=== PATIENT | male | born 1950 | race Caucasian/White ===

== ENCOUNTER 2016-10-17 20:04 | Emergency (ER) | payer BC ==
[2016-10-17 20:22] VITALS: BP 126/60
[2016-10-17 20:41] LABS: Hematocrit 34 % (42-52); Hemoglobin 11.6 g/dl (14.0-18.0); Mean Corpuscular HGB Conc 34 g/dl (31-36); Mean Corpuscular Hemoglobin 34 pg (27-31); Mean Corpuscular Volume 99 fL (80-94); Mean Platelet Volume 8 um3 (7.4-10.4); Red Blood Count 3.43 10^6/ul (4.0-5.4); Red Cell Distribution Width 12 % (10.5-15); White Blood Count 5.6 10^3/ul (3.5-10.8)
--- NOTE | 2016-10-17 20:48 | RAD ---
INDICATION: Chest pain. COMPARISON: There are no prior studies available for comparison. TECHNIQUE: Dual-energy PA and lateral views of the chest were obtained. FINDINGS: The heart is within normal limits in size. Mediastinal and hilar contours appear within normal limits. The lungs are hyperinflated and clear there is mild bilateral apical pleural thickening. No pleural effusion or pneumothorax is seen. IMPRESSION: FINDINGS CONSISTENT WITH COPD, NO EVIDENCE FOR ACUTE FINDING.
[2016-10-17 20:54] LABS: Albumin 3.7 g/dL (3.2-5.2); BUN/Creatinine Ratio 15.1 (8-20); Calcium 8.5 mg/dL (8.6-10.3); EGFR African American 139.6 (>60); EGFR Non-African American 108.5 (>60); Globulin 1.9 g/dL (2-4); Magnesium 1.8 mg/dL (1.9-2.7); Potassium 3.4 mmol/L (3.5-5.0); Total Bilirubin 0.3 mg/dL (0.2-1.0); Total Protein 5.6 g/dL (6.4-8.9)
--- NOTE | 2016-10-17 21:07 | ED ---
Hadley Cisse Matthew, scribed for Leo Gregory MD on 10/17/16 at 2028 . Syncope/Near Syncope - HPI Summary HPI Summary: A 65 y/o male presents to the ED after having multiple episodes of syncope. Per the , the patient was doing the dishes when he syncopated. He synopsized 4 times in a row and each episode lasted for one minute. The patient states that he doesn't remember anything and he did not feel like he was going pass out. Currently, he feels better and denies SOB. This also happened two months ago and was hospitalized overnight for observation in [place]. He received a nuclear stress test at that time. He has CMT. - History Of Current Complaint Time Seen by Provider: 10/17/16 20:11 Hx Obtained From: Patient Onset/Duration: Sudden Onset, Lasting Minutes, Resolved Timing: Frequency Of Episodes - 4 for approximately 1 minute each Context: Witnessed, Loss Of Consciousness Activity At Onset: At Rest Associated Head Trauma: No Aggravating Factor(s): Nothing Alleviating Factor(s): Spontaneous Resolution Associated Signs And Symptoms: Negative - Allergies/Home Medications Allergies/Adverse Reactions: Allergies Allergy/AdvReac Type Severity Reaction Status Date / Time No Known Allergies Allergy Verified 05/24/12 13:19 PMH/Surg Hx/FS Hx/Imm Hx Cardiovascular History: Denies: Hx Pacemaker/ICD Sensory History: Reports: Hx Contacts or Glasses - GLASSES Denies: Hx Hearing Aid Opthamlomology History: Reports: Hx Contacts or Glasses - GLASSES Psychiatric History: Denies: Hx Panic Disorder - Surgical History Surgery Procedure, Year, and Place: 2011 VEIN STRIPPING AT [facility] [place] Hx Anesthesia Reactions: No Infectious Disease History: No Infectious Disease History: Denies: Traveled Outside the [place] in Last 30 Days - Family History Family History: FHx of CMT - Social History Lives: With Family Alcohol Use: None Hx Substance Use: No Substance Use Type: Reports: None Hx Tobacco Use: Yes Smoking Status (MU): Former Smoker Review of Systems Constitutional: Negative Eyes: Negative ENT: Negative Cardiovascular: Negative Respiratory: Negative Gastrointestinal: Negative Genitourinary: Negative Musculoskeletal: Negative Skin: Negative Positive: Syncope Psychological: Normal All Other Systems Reviewed And Are Negative: Yes Physical Exam Triage Information Reviewed: Yes Vital Signs On Initial Exam: Initial Vitals Temp Pulse Resp BP Pulse Ox 98.5 F 74 20 126/60 100 04/25/17 20:16 10/17/16 20:16 10/17/16 20:16 10/17/16 20:16 10/17/16 20:16 Vital Signs Reviewed: Yes Appearance: Positive: Well-Appearing, No Pain Distress Skin: Positive: Warm Head/Face: Positive: Normal Head/Face Inspection Eyes: Positive: EOMI, GENO ENT: Positive: Hearing grossly normal Neck: Positive: Supple Respiratory/Lung Sounds: Positive: Clear to Auscultation, Breath Sounds Present Cardiovascular: Positive: RRR Abdomen Description: Positive: Nontender, Soft Bowel Sounds: Positive: Present Musculoskeletal: Positive: Strength/ROM Intact Neurological: Positive: Sensory/Motor Intact, Alert, Oriented to Person Place, Time, CN Intact II-III Psychiatric: Positive: Affect/Mood Appropriate Diagnostics - Vital Signs Vital Signs Temp Pulse Resp BP Pulse Ox 10/17/16 20:16 98.5 F 74 20 126/60 100 - Laboratory Lab Results: Lab Results 10/17/16 10/17/16 10/17/16 Range/Units 20:25 20:25 20:25 WBC 5.6 (3.5-10.8) 10^3/ul RBC 3.43 L (4.0-5.4) 10^6/ul Hgb 11.6 L (14.0-18.0) g/dl Hct 34 L (42-52) % MCV 99 H (80-94) fL MCH 34 H (27-31) pg MCHC 34 (31-36) g/dl RDW 12 (10.5-15) % Plt Count 274 (150-450) 10^3/ul MPV 8 (7.4-10.4) um3 Neut % (Auto) 60.1 (38-83) % Lymph % (Auto) 26.6 (25-47) % Heard % (Auto) 8.3 (1-9) % Eos % (Auto) 3.7 (0-6) % Baso % (Auto) 1.3 (0-2) % Absolute Neuts (auto) 3.3 (1.5-7.7) 10^3/ul Absolute Lymphs (auto) 1.5 (1.0-4.8) 10^3/ul Absolute Monos (auto) 0.5 (0-0.8) 10^3/ul Absolute Eos (auto) 0.2 (0-0.6) 10^3/ul Absolute Basos (auto) 0.1 (0-0.2) 10^3/ul Absolute Nucleated RBC 0 10^3/ul Nucleated RBC % 0 Sodium 129 L (133-145) mmol/L Potassium 3.4 L (3.5-5.0) mmol/L Chloride 99 L (101-111) mmol/L Carbon Dioxide 23 (22-32) mmol/L Anion Gap 7 (2-11) mmol/L BUN 11 (6-24) mg/dL Creatinine 0.73 (0.67-1.17) mg/dL Est GFR ( Amer) 139.6 (>60) Est GFR (Non-Af Amer) 108.5 (>60) BUN/Creatinine Ratio 15.1 (8-20) Glucose 133 H (70-100) mg/dL Lactic Acid 2.6 H* (0.5-2.0) mmol/L Calcium 8.5 L (8.6-10.3) mg/dL Magnesium 1.8 L (1.9-2.7) mg/dL Total Bilirubin 0.30 (0.2-1.0) mg/dL AST 19 (13-39) U/L ALT 15 (7-52) U/L Alkaline Phosphatase 59 (34-104) U/L Troponin I 0.00 (<0.04) ng/mL Total Protein 5.6 L (6.4-8.9) g/dL Albumin 3.7 (3.2-5.2) g/dL Globulin 1.9 L (2-4) g/dL Albumin/Globulin Ratio 1.9 (1-3) TSH Pending Result Diagrams: 10/17/16 20:25 10/17/16 20:25 Lab Statement: Any lab studies that have been ordered have been reviewed, and results considered in the medical decision making process. - Radiology CXR Xray Interpretation: No Acute Changes - IMPRESSION: FINDINGS CONSISTENT WITH COPD, NO EVIDENCE FOR ACUTE FINDING. Radiology Interpretation Completed By: Radiologist - EKG 20:26 Cardiac Rate: NL - 62 bpm EKG Rhythm: Sinus Rhythm EKG Interpretation: No STEMI Re-Evaluation - Re-Evaluation Second Eval Comment: pt does not want to stay in hospital, advised of risks of leaving, pt understands and accepts risks, signed out AMA Course/Dx Assessment/Plan: A 65 y/o male presents to the ED after having multiple episodes of syncope. Per the , the patient was doing the dishes when he syncopated. He synopsized 4 times in a row and each episode lasted for one minute. The patient states that he doesn't remember anything and he did not feel like he was going pass out. Currently, he feels better and denies SOB. Labs were reviewed and shows lactic acid of 2.6. CXR shows findings consistent with copd, no evidence for acute finding. EKG shows sinus rhythm at 62 bpm. Discussed the case with Dr. Vogel who will admit the patient into his services. - Diagnoses Provider Diagnoses: Syncope - Physician Notifications Discussed Care Of Patient With: Dr. Vogel (Hospitalist) at 21:16 - Notified of patient's history and will admit the patient. Discharge - Discharge Plan Condition: Fair Disposition: AGAINST MEDICAL ADVICE Referrals: Aubrey Canas MD [Primary Care Provider] - The documentation as recorded by the Hadley mahoney Matthew accurately reflects the service I personally performed and the decisions made by me, Leo Gregory MD.
[2016-10-17 21:23] LABS: TSH (Thyroid Stimulating Horm) 4.31 mcIU/mL (0.34-5.60)
--- NOTE | 2016-10-17 21:48 | HP ---
H&P (Free Text) History and Physical: PCP: Maribel Canas MD Date/Time of Evaluation: 2144 CC: syncope HPI: Mr Garza is a 65YO male HX Ylwzwdp-Yqybu-Obkxy who was washing dishes this evening when his vision dimmed, went black, and the next thing he knew he was on the floor with his over him. His had heard a crash and found him on the kitchen floor with nearby furniture overturned appearing "ashen" in color. He was unresponsive for about a minute. He denies any prodromal syndrome , specifically no chest pain, SOB, palpitations, focal W/N/T, or other issue. He lay on the floor for a bit, stood up, and quickly passed back out. He had a similar episode ~2 months ago while out-of-town and was admitted overnight to [facility] where a stress test was performed. Per him & his , no definitive answer was found. PMedHx Uneibbb-Egjsl-Kdmtq neuropathy Ambulatory Orders Advil 400 mg PO QID 05/24/12 Fish Oil 2,000 mg PO DAILY 05/24/12 Cyanocobalamin TAB* [Vitamin B12 TAB*] 1,500 mcg PO DAILY 03/28/16 Allergies No Known Allergies Allergy (Verified 05/24/12 13:19) SocHx: former smoker w/ ~30PYHX, denies alcohol & recreational drugs; lives with his ; coral; full code status FamHx: positive for HTN ROS: as above, otherwise reviewed and all were negative Constitutional: NAD, normally developed, well-nourished white male vitals: Vital Signs Temp 36.9 C 10/17/16 20:16 Pulse 74 10/17/16 20:16 Resp 20 10/17/16 20:16 BP 126/60 10/17/16 20:16 Pulse Ox 100 10/17/16 20:16 Intake & Output 10/16/16 10/17/16 10/17/16 23:59 11:59 23:59 Weight 74.843 kg HEENM: atraumatic; sclera/conjunctiva: non-icteric/clear; hearing: clinically intact; oropharynx: clear, mucosa moist Neck: soft tissue: non-tender; thyroid: normal Pulmonary: clear to auscultation bilaterally, good aeration, no accessory muscle use CV: RR/RR, normal S1S2, no carotid bruit, no jugular venous distention, 2+ B DP/ PT, no edema Abdominal: soft, non-distended, non-tender, no rebound/guarding/rigidity, normoactive bowel sounds, no hepatosplenomegaly or masses, no costovertebral angle tenderness Musculoskeletal: general: grossly intact; gait: stable Integumental: normal appearance and texture of exposed skin Psychiatric orientation: AA&O to PPS affect: calm mood: cooperative eye contact: good content: reliable responses: timely insight: fair to poor Testing: Lab Results 10/17/16 10/17/16 10/17/16 Range/Units 20:25 20:25 20:25 WBC 5.6 (3.5-10.8) 10^3/ul RBC 3.43 L (4.0-5.4) 10^6/ul Hgb 11.6 L (14.0-18.0) g/dl Hct 34 L (42-52) % MCV 99 H (80-94) fL MCH 34 H (27-31) pg MCHC 34 (31-36) g/dl RDW 12 (10.5-15) % Plt Count 274 (150-450) 10^3/ul MPV 8 (7.4-10.4) um3 Neut % (Auto) 60.1 (38-83) % Lymph % (Auto) 26.6 (25-47) % Becker % (Auto) 8.3 (1-9) % Eos % (Auto) 3.7 (0-6) % Baso % (Auto) 1.3 (0-2) % Absolute Neuts (auto) 3.3 (1.5-7.7) 10^3/ul Absolute Lymphs (auto) 1.5 (1.0-4.8) 10^3/ul Absolute Monos (auto) 0.5 (0-0.8) 10^3/ul Absolute Eos (auto) 0.2 (0-0.6) 10^3/ul Absolute Basos (auto) 0.1 (0-0.2) 10^3/ul Absolute Nucleated RBC 0 10^3/ul Nucleated RBC % 0 D-Dimer, Quantitative (Less Than 230) ng/mL Sodium 129 L (133-145) mmol/L Potassium 3.4 L (3.5-5.0) mmol/L Chloride 99 L (101-111) mmol/L Carbon Dioxide 23 (22-32) mmol/L Anion Gap 7 (2-11) mmol/L BUN 11 (6-24) mg/dL Creatinine 0.73 (0.67-1.17) mg/dL Est GFR ( Amer) 139.6 (>60) Est GFR (Non-Af Amer) 108.5 (>60) BUN/Creatinine Ratio 15.1 (8-20) Glucose 133 H (70-100) mg/dL Lactic Acid 2.6 H* (0.5-2.0) mmol/L Calcium 8.5 L (8.6-10.3) mg/dL Magnesium 1.8 L (1.9-2.7) mg/dL Total Bilirubin 0.30 (0.2-1.0) mg/dL AST 19 (13-39) U/L ALT 15 (7-52) U/L Alkaline Phosphatase 59 (34-104) U/L Troponin I 0.00 (<0.04) ng/mL Total Protein 5.6 L (6.4-8.9) g/dL Albumin 3.7 (3.2-5.2) g/dL Globulin 1.9 L (2-4) g/dL Albumin/Globulin Ratio 1.9 (1-3) TSH 4.31 (0.34-5.60) mcIU/mL Urine Color Urine Appearance Urine pH (5-9) Ur Specific [place] (1.010-1.030) Urine Protein (Negative) Urine Ketones (Negative) Urine Blood (Negative) Urine Nitrate (Negative) Urine Bilirubin (Negative) Urine Urobilinogen (Negative) Ur Leukocyte Esterase (Negative) Urine Glucose (Negative) 10/17/16 10/17/16 Range/Units 20:25 21:39 WBC (3.5-10.8) 10^3/ul RBC (4.0-5.4) 10^6/ul Hgb (14.0-18.0) g/dl Hct (42-52) % MCV (80-94) fL MCH (27-31) pg MCHC (31-36) g/dl RDW (10.5-15) % Plt Count (150-450) 10^3/ul MPV (7.4-10.4) um3 Neut % (Auto) (38-83) % Lymph % (Auto) (25-47) % Becker % (Auto) (1-9) % Eos % (Auto) (0-6) % Baso % (Auto) (0-2) % Absolute Neuts (auto) (1.5-7.7) 10^3/ul Absolute Lymphs (auto) (1.0-4.8) 10^3/ul Absolute Monos (auto) (0-0.8) 10^3/ul Absolute Eos (auto) (0-0.6) 10^3/ul Absolute Basos (auto) (0-0.2) 10^3/ul Absolute Nucleated RBC 10^3/ul Nucleated RBC % D-Dimer, Quantitative < 200 (Less Than 230) ng/mL Sodium (133-145) mmol/L Potassium (3.5-5.0) mmol/L Chloride (101-111) mmol/L Carbon Dioxide (22-32) mmol/L Anion Gap (2-11) mmol/L BUN (6-24) mg/dL Creatinine (0.67-1.17) mg/dL Est GFR ( Amer) (>60) Est GFR (Non-Af Amer) (>60) BUN/Creatinine Ratio (8-20) Glucose (70-100) mg/dL Lactic Acid (0.5-2.0) mmol/L Calcium (8.6-10.3) mg/dL Magnesium (1.9-2.7) mg/dL Total Bilirubin (0.2-1.0) mg/dL AST (13-39) U/L ALT (7-52) U/L Alkaline Phosphatase (34-104) U/L Troponin I (<0.04) ng/mL Total Protein (6.4-8.9) g/dL Albumin (3.2-5.2) g/dL Globulin (2-4) g/dL Albumin/Globulin Ratio (1-3) TSH (0.34-5.60) mcIU/mL Urine Color Straw Urine Appearance Cloudy Urine pH 7.0 (5-9) Ur Specific [place] 1.005 L (1.010-1.030) Urine Protein Negative (Negative) Urine Ketones Negative (Negative) Urine Blood Negative (Negative) Urine Nitrate Negative (Negative) Urine Bilirubin Negative (Negative) Urine Urobilinogen Negative (Negative) Ur Leukocyte Esterase Negative (Negative) Urine Glucose Negative (Negative) ECG, personally reviewed: NSR rate 62, no ischemia, J-point elevation V2 CXR, personally reviewed: IMPRESSION: FINDINGS CONSISTENT WITH COPD, NO EVIDENCE FOR ACUTE FINDING. Impression: 65M presenting with recurrent syncope DIAGNOSIS & PLAN Primary syncope, recurrent : telemetry : trend troponin : check ECHO in AM : obtain records from [facility] : supportive care Upon being informed of the plan to observe overnight for further work up, he informs me he does not wish to stay. I advised him that it is most likely he is having a heart rhythm disturbance and will ultimately need a pace maker, but that we need to capture the arrhythmia before that can happen. In a worst case scenario, he could pass out and of this or potentially sustain a critical injury related to falling. Despite this, he still would not agree to stay. He was advised to avoid getting into positions and situations where passing out could be more dangerous, such as avoiding heights, etc. Additionally, as this is his second episode of as yet unexplained syncope, he was informed that he was not to drive or operate potentially dangerous equipment until further released by his PCP. He & his expressed understanding of these restrictions and repeated them back to me. He should call Dr Canas's office first thing in the AM to arrange for quick follow up.
[2016-10-17 21:52] LABS: Urine Bilirubin Negative (Negative); Urine Glucose Negative (Negative); Urine Nitrite Negative (Negative)
== END 2016-10-17 22:34 | disposition left against medical advice (07) ==
LOC: ED 20:04
DX: R55 Syncope and collapse (principal); Z87.891 Personal history of nicotine dependence; Z53.21 Procedure and treatment not carried out due to patient leaving prior to being seen by health care provider
CPT/HCPCS: 36415; 71020; 80053; 81003; 83605; 83735; 84443; 84484; 85025; 85379; 93005; 99284

== ENCOUNTER 2019-05-21 09:26 | Emergency (ER) | payer MEDICARE ==
--- NOTE | 2019-05-21 10:10 | ED ---
Back Pain - HPI Summary HPI Summary: The patient is a 68 y/o M presenting to [facility] accompanied by with a chief complaint of worsening chronic low back pain as it now radiates into both legs onset a week ago. He reports that he has weakness in the legs as well that developed two weeks ago after getting the flu vaccine. He states that the numbness is not currently worse than it was at onset. He denies any urinary or fecal dysfunction, or numbness between the legs. Currently, the pain is rated 7/ 10 in severity. He is able to ambulate although it aggravates the pain. He went to see his PCP recently, which he saw No at Dr. Whiting office, and she sent him here due to blood work. He is scheduled to get a MRI. PMHx: Charcot -Mary Grace-Tooth disease, peripheral neuropathy. Former smoker, daily EtOH, marijuana use. Medications reviewed. Allergies noted. - History of Current Complaint Chief Complaint: EDGeneral Stated Complaint: BACK PAIN PER PT/SENT BY MD Time Seen by Provider: 05/21/19 09:53 Hx Obtained From: Patient Onset/Duration: Lasting Days - one week, Still Present Onset/Duration: Started Days Ago, Still Present Timing: Lasting Days Back Pain Location: Is Discrete @ - low back, Radiates To - bilateral legs Severity Initially: Mild Severity Currently: Moderate Pain Intensity: 7 Pain Scale Used: 0-10 Numeric Character: Sharp Aggravating Symptom(s): Walking Alleviating Symptom(s): Nothing Associated Signs And Symptoms: Positive: Weakness - bilateral legs, Other - Negative: urinary or fecal dysfunction. Negative: Numbness - Allergies/Home Medications Allergies/Adverse Reactions: Allergies Allergy/AdvReac Type Severity Reaction Status Date / Time No Known Allergies Allergy Verified 05/21/19 09:35 Home Medications: Home Medications Gabapentin 600 mg PO TID 05/21/19 [History Confirmed 05/21/19] PMH/Surg Hx/FS Hx/Imm Hx Endocrine/Hematology History: Denies: Hx Diabetes Cardiovascular History: Denies: Hx Hypercholesterolemia, Hx Hypertension, Hx Pacemaker/ICD History: Denies: Hx Renal Disease Sensory History: Reports: Hx Contacts or Glasses - GLASSES, Hx Hearing Aid - BILATERAL Opthamlomology History: Reports: Hx Contacts or Glasses - GLASSES Neurological History: Reports: Hx Peripheral Neuropathy, Other Neuro Impairments /Disorders - Edifetd-Gxgzy-Ynrre disease Psychiatric History: Denies: Hx Panic Disorder - Surgical History Surgery Procedure, Year, and Place: 2012 VEIN STRIPPING AT [facility] [place], Hx Anesthesia Reactions: No Infectious Disease History: No Infectious Disease History: Denies: Traveled Outside the [place] in Last 30 Days - Family History Known Family History: Positive: Other - CMT Family History: FHx of CMT - Social History Alcohol Use: None Alcohol Amount: "1-2 shots and a beer per day" Hx Substance Use: No Substance Use Type: Reports: None Hx Tobacco Use: Yes Smoking Status (MU): Former Smoker Review of Systems Negative: Other - fecal dysfunction Negative: other - urinary dysfunction Positive: Other - back pain radiating into legs Positive: Weakness - bilateral legs. Negative: Numbness - between legs All Other Systems Reviewed And Are Negative: Yes Physical Exam - Summary Physical Exam Summary: VITAL SIGNS: Reviewed. GENERAL: Patient is a well-developed and nourished male who is lying comfortable in the stretcher. Patient is not in any acute respiratory distress. HEAD AND FACE: No signs of trauma. No ecchymosis, hematomas or skull depressions. No sinus tenderness. EYES: PERRLA, EOMI x 2, No injected conjunctiva, no nystagmus. EARS: Hearing grossly intact. Ear canals and tympanic membranes are within normal limits. MOUTH: Oropharynx within normal limits. NECK: Supple, trachea is midline, no adenopathy, no JVD, no carotid bruit, no c- spine tenderness, neck with full ROM. CHEST: Symmetric, no tenderness at palpation. LUNGS: Clear to auscultation bilaterally. No wheezing or crackles. CVS: Regular rate and rhythm, S1 and S2 present, no murmurs or gallops appreciated. ABDOMEN: Soft, non-tender. No signs of distention. No rebound, no guarding, and no masses palpated. Bowel sounds are normal. EXTREMITIES: FROM in all major joints, no edema, no cyanosis or clubbing. NEURO: Alert and oriented x 3. No acute neurological deficits. Speech is normal and follows commands. SKIN: Dry and warm. RECTAL: Normal sphincter tone. No saddle anesthesia. Triage Information Reviewed: Yes Vital Signs On Initial Exam: Initial Vitals Temp Pulse Resp BP Pulse Ox 98.6 F 76 16 150/81 100 05/21/19 09:30 05/21/19 09:30 05/21/19 09:30 05/21/19 09:30 05/21/19 09:30 Vital Signs Reviewed: Yes Procedures - Sedation Patient Received Moderate/Deep Sedation with Procedure: No Diagnostics - Vital Signs Vital Signs Temp Pulse Resp BP Pulse Ox 05/21/19 09:30 98.6 F 76 16 150/81 100 - Laboratory Result Diagrams: 05/21/19 10:18 05/21/19 10:18 Lab Statement: Any lab studies that have been ordered have been reviewed, and results considered in the medical decision making process. - Radiology Lumbar Spine MRI Radiology Interpretation Completed By: Radiologist Summary of Radiographic Findings: Impression: At L5-S1 there is disc desiccation with left far lateral disc protrusion which appears to abut and impinge upon the left exiting nerve root. At L4-L5 there appears to be grade 1 spondylolisthesis with a right far lateral disc protrusion abutting the right exiting nerve root. ED physician has reviewed this report. Re-Evaluation - Re-Evaluation First Eval Re-Evaluation Time: 14:10 Comment: We discussed all results and plan for discharge. Back Pain Course/Dx - Course Assessment/Plan: This patient is a 68-year-old male who presents to the emergency department with chief complaint of back pain and extremity weakness. The patient also reports that his blood work with the primary care physician was abnormal. Past medical history: Chronic back pain, Pulmonary nodule, Vitamin B12 deficiency, Charcot Mary Grace tooth syndrome. Blood work results without any significant abnormality except for glucose of 103 and CPK of 452. Urinalysis is negative for UTI. In the ED course the patient was given IV fluids. L-S MRI Impression: At L5-S1 there is disc desiccation with left far lateral disc protrusion which appears to abut and impinge upon the left exiting nerve root. At L4-L5 there appears to be grade 1 spondylolisthesis with a right far lateral disc protrusion abutting the right exiting nerve root. I discussed the case with KORIN Mathias, working with Dr. Canas, and she agrees to discharge the patient home and f/u at their office and neurosurgery. At this point, I discussed all the findings and test results with the patient. Patient was instructed to return to the emergency room immediately if any of the symptoms return or worsen. Patient understands and agrees. Neurological exam before discharge: Patient is alert and oriented x 3. No acute neurological deficits. Patient's vital signs are stable. Patient is to follow up with PCP in the next 2 3 days. They understand and agree. The plan of care was discussed with the patient and patient understands and agrees with the plan of care. All questions were answered at patient satisfaction. There were no further complaints or concerns. - Diagnoses Differential Diagnosis/HQI/PQRI: Positive: Cauda Equina Syndrome, Compressive Cord Syndrome, Epidural Abscess, Herniated Disc, Strain, Sprain Provider Diagnoses: Back pain, Elevated CPK - Provider Notifications Discussed Care Of Patient With: Adela LANGLEY, Family Medicine Time Discussed With Above Provider: 10:15 Instructed by Provider To: Other - I spoke with Adela, and she is concerned for an infection which is why she has a MRI ordered for the patient, but the patient 's WBCs and CRP are normal, and he hasn't had any fevers. After the patient's workup, I spoke with Adela again, and she agrees with discharge plan. Discharge ED - Sign-Out/Discharge Documenting (check all that apply): Patient Departure - Patient will be discharged home. - Discharge Plan Condition: Stable Disposition: HOME Patient Education Materials: Back Pain (ED) Referrals: Estela Cisneros MD [Medical Doctor] - 3 Days Aubrey Canas MD [Primary Care Provider] - 3 Days Additional Instructions: Follow up with neurosurgery in 2-3 days. Follow up with your primary care provider in 2-3 days. Return to the emergency department for any new or worsening symptoms. - Billing Disposition and Condition Condition: STABLE Disposition: Home - Attestation Statements Document Initiated by Goran: Yes Documenting Scribe: Ariadna Lerner Provider For Whom Goran is Documenting (Include Credential): Dr. Ryan Paez MD Scribe Attestation: Ariadna Cisse scribed for Dr. Ryan Paez MD on 05/22/19 at 1841. Scribe Documentation Reviewed: Yes Provider Attestation: The documentation as recorded by the Ariadna mahoney accurately reflects the service I personally performed and the decisions made by me, Dr. Ryan Paez MD Status of Scribe Document: Viewed
[2019-05-21 10:23] LABS: Urine Appearance Clear; Urine Bilirubin Negative (Negative); Urine Blood Negative (Negative); Urine Color Straw; Urine Glucose Negative (Negative); Urine Ketones Negative (Negative); Urine Nitrite Negative (Negative); Urine Protein Negative (Negative); Urine Specific Gravity 1.005 (1.010-1.030); Urine Urobilinogen Negative (Negative)
[2019-05-21 10:25] LABS: ABS Eosinophils 0.2 10^3/ul (0-0.6); ABS Lymphocytes 0.9 10^3/ul (1.0-4.8); ABS Monocytes 0.5 10^3/ul (0-0.8); ABS Neutrophils 2.9 10^3/ul (1.5-7.7); Eosinophil % 5.3 %; Hematocrit 41 % (42-52); Hemoglobin 14.5 g/dL (14.0-18.0); Lymphocyte % 19.5 %; Mean Corpuscular HGB Conc 35 g/dL (31-36); Mean Corpuscular Hemoglobin 35 pg (27-31); Mean Corpuscular Volume 99 fL (80-94); Mean Platelet Volume 6.9 fL (7.4-10.4); Nucleated Red Blood Cells % 0.1; Platelet Count 320 10^3/uL (150-450); Red Blood Count 4.13 10^6 /uL (4.18-5.48); Red Cell Distribution Width 13 % (10-15); White Blood Count 4.6 10^3/uL (3.5-10.8)
[2019-05-21 10:46] LABS: ALT 31 U/L (7-52); AST 29 U/L (13-39); Albumin 4.3 g/dL (3.2-5.2); Albumin/Globulin Ratio 1.7 (1-3); Alkaline Phosphatase 80 U/L (34-104); Anion Gap 8 mmol/L (2-11); BUN/Creatinine Ratio 22.6 (8-20); Blood Urea Nitrogen 14 mg/dL (6-24); C Reactive Protein < 1.00 mg/L (<8.01); CO2 Carbon Dioxide 27 mmol/L (22-32); Calcium 9.7 mg/dL (8.6-10.3); Chloride 100 mmol/L (101-111); Creatine Kinase 452 U/L (10-223); EGFR Non-African American 129.8 (>60); Globulin 2.5 g/dL (2-4); Glucose 103 mg/dL (70-100); Potassium 4.3 mmol/L (3.5-5.0); Sodium 135 mmol/L (135-145); Total Protein 6.8 g/dL (6.4-8.9)
[2019-05-21] MEDS ORDERED: NS 0.9% 1000 ML** 1,000 ML IV ONE (11:01)
[2019-05-21 14:48] VITALS: BP 114/70
== END 2019-05-21 14:47 | disposition home or self-care (01) ==
LOC: ED 09:26
DX: M54.9 Dorsalgia, unspecified (principal); R74.8 Abnormal levels of other serum enzymes; Z79.899 Other long term (current) drug therapy
CPT/HCPCS: 36415; 72148; 80053; 81003; 82550; 83605; 83690; 83735; 85025; 85652; 86140; 96360; 96361; 99283

== ENCOUNTER 2020-05-10 13:31 | Inpatient (IN) ==
[2020-05-10 15:46] LABS: ABS Lymphocytes 0.2 10^3/ul (1.0-4.8); ABS Monocytes 0.4 10^3/ul (0-0.8); ABS Neutrophils 13.1 10^3/ul (1.5-7.7); Eosinophil % 0.1 %; Hematocrit 38 % (42-52); Hemoglobin 13.1 g/dL (14.0-18.0); Lymphocyte % 1.7 %; Mean Corpuscular HGB Conc 35 g/dL (31-36); Mean Corpuscular Hemoglobin 35 pg (27-31); Mean Corpuscular Volume 99 fL (80-94); Mean Platelet Volume 7.2 fL (7.4-10.4); Platelet Count 328 10^3/uL (150-450); Red Blood Count 3.78 10^6 /uL (4.18-5.48); Red Cell Distribution Width 12 % (10-15); White Blood Count 13.8 10^3/uL (3.5-10.8)
[2020-05-10 16:10] LABS: Albumin 4.4 g/dL (3.2-5.2); BUN/Creatinine Ratio 24.5 (8-20); Calcium 9.3 mg/dL (8.6-10.3); EGFR African American 187.6 (>60); EGFR Non-African American 155.1 (>60); Globulin 2.2 g/dL (2-4); Potassium 3.7 mmol/L (3.5-5.0); Total Bilirubin 0.8 mg/dL (0.2-1.0); Total Protein 6.6 g/dL (6.4-8.9)
[2020-05-10] MEDS ORDERED: NS 0.9% 1000 ml BAG 1,000 ML IV ONE (16:33)
[2020-05-10] MEDS ORDERED: Iohexol 300 (CONTRAST) 10 ML SDV IV ONE (17:39)
[2020-05-10] MEDS ORDERED: Piperacillin/Tazobac ADVAN 3.375 GM in NS 0.9% 100 ml BAG 100 ML IV ONE ×2 (18:31→20:10)
[2020-05-10] MEDS ORDERED: Zosyn per Pharmacy NOTE FOLLOW UP SCH ×2 (19:00→21:00)
[2020-05-10 19:05] LABS: Urine Appearance Clear; Urine Bilirubin Negative (Negative); Urine Blood 1+ (Negative); Urine Color Yellow; Urine Glucose Negative (Negative); Urine Ketones 1+ (Negative); Urine Nitrite Negative (Negative); Urine Protein Negative (Negative); Urine Specific Gravity 1.024 (1.010-1.030); Urine Urobilinogen Negative (Negative)
[2020-05-10 19:11] LABS: Urine Bacteria Absent (Absent); Urine Red Blood Cell Trace(0-2/hpf) (Absent); Urine White Blood Cell Absent (Absent)
[2020-05-10] MEDS ORDERED: Morphine 2 MG/ML SYRINGE IV PRN (20:10)
[2020-05-10] MEDS ORDERED: Ondansetron 4 mg VIAL 2 MG/ML 2 ml VIAL IV PRN (20:10)
[2020-05-10] MEDS ORDERED: NS 0.9% 1000 ml BAG 1,000 ML IV SCH (20:15)
[2020-05-10 21:27] LABS: Activated Partial Thrombo Time 29.1 seconds (26.0-38.0)
[2020-05-10] MEDS: Heparin 5000 UNITS/ML 1 mL VIAL SUBCUT SCH (23:06)
[2020-05-10] MEDS: ZOSYN 3.375 GM Q8H per EXTENDED INFUSION IV SCH (23:07)
[2020-05-11 05:48] LABS: ABS Lymphocytes 0.6 10^3/ul (1.0-4.8); ABS Monocytes 0.5 10^3/ul (0-0.8); ABS Neutrophils 11.9 10^3/ul (1.5-7.7); Hematocrit 35 % (42-52); Hemoglobin 12.2 g/dL (14.0-18.0); Lymphocyte % 4.7 %; Mean Corpuscular HGB Conc 35 g/dL (31-36); Mean Corpuscular Hemoglobin 35 pg (27-31); Mean Corpuscular Volume 100 fL (80-94); Mean Platelet Volume 7.5 fL (7.4-10.4); Platelet Count 288 10^3/uL (150-450); Red Blood Count 3.53 10^6 /uL (4.18-5.48); Red Cell Distribution Width 12 % (10-15); White Blood Count 12.9 10^3/uL (3.5-10.8)
[2020-05-11 06:06] LABS: BUN/Creatinine Ratio 16.4 (8-20); Calcium 8.7 mg/dL (8.6-10.3); EGFR African American 179.8 (>60); EGFR Non-African American 148.6 (>60); Potassium 3.5 mmol/L (3.5-5.0)
[2020-05-11] MEDS: ZOSYN 3.375 GM Q8H per EXTENDED INFUSION IV SCH ×3 (06:13→22:21)
[2020-05-11] MEDS: Heparin 5000 UNITS/ML 1 mL VIAL SUBCUT SCH ×3 (06:13→21:57)
[2020-05-11] MEDS: Pantoprazole VIAL 40 MG VIAL IV SCH (08:33)
[2020-05-12 05:43] LABS: ABS Basophils 0.1 10^3/ul (0-0.2); ABS Lymphocytes 0.6 10^3/ul (1.0-4.8); ABS Monocytes 0.5 10^3/ul (0-0.8); ABS Neutrophils 9.3 10^3/ul (1.5-7.7); Eosinophil % 0.2 %; Hematocrit 34 % (42-52); Hemoglobin 11.8 g/dL (14.0-18.0); Lymphocyte % 5.4 %; Mean Corpuscular HGB Conc 35 g/dL (31-36); Mean Corpuscular Hemoglobin 35 pg (27-31); Mean Corpuscular Volume 100 fL (80-94); Mean Platelet Volume 7.5 fL (7.4-10.4); Platelet Count 291 10^3/uL (150-450); Red Blood Count 3.41 10^6 /uL (4.18-5.48); Red Cell Distribution Width 13 % (10-15); White Blood Count 10.4 10^3/uL (3.5-10.8)
[2020-05-12 05:59] LABS: BUN/Creatinine Ratio 16.7 (8-20); Calcium 8.9 mg/dL (8.6-10.3); EGFR African American 162.6 (>60); EGFR Non-African American 134.4 (>60); Potassium 3.4 mmol/L (3.5-5.0)
[2020-05-12] MEDS: Heparin 5000 UNITS/ML 1 mL VIAL SUBCUT SCH (06:03)
[2020-05-12] MEDS: ZOSYN 3.375 GM Q8H per EXTENDED INFUSION IV SCH (06:04)
[2020-05-12] MEDS: Pantoprazole VIAL 40 MG VIAL IV SCH (10:31)
[2020-05-12 11:41] VITALS: BP 150/62
[2020-05-12] MEDS ORDERED: Potassium Chlor 20 meq TAB.ER PO ONE (12:51)
== END 2020-05-12 14:06 | disposition home or self-care (01) | DRG 872 ==
LOC: ED 13:31 → SSU 20:06
PROVIDERS: ADMIT Internal Medicine; ATTEND Internal Medicine